=== PATIENT | female | born 1990 | race Caucasian/White ===

== ENCOUNTER → 2023-11-22 09:09 | Outpatient (REF) | payer MEDICARE, OTHER, SELFPAY | LOC: RAD 09:09 | PROVIDERS: ATTENDING PHYSICIAN Physician Assistant; FAMILY PHYSICIAN Family Medicine | DX: R13.10 Dysphagia, unspecified (principal) | CPT/HCPCS: 74246 ==

== ENCOUNTER → 2024-05-18 08:05 | Outpatient (REF) | payer MEDICARE, OTHER, SELFPAY | LOC: RST 08:05 | PROVIDERS: ATTENDING PHYSICIAN Internal Medicine Gastroenterology; FAMILY PHYSICIAN Family Medicine | DX: R13.10 Dysphagia, unspecified (principal) | CPT/HCPCS: 74230; 92611 ==

== ENCOUNTER → 2025-01-15 07:24 | Outpatient (REF) | payer MEDICARE, OTHER, SELFPAY | LOC: HWRAD 07:24 | PROVIDERS: ATTENDING PHYSICIAN Internal Medicine Cardiovascular Disease; FAMILY PHYSICIAN Family Medicine | DX: Q21.3 Tetralogy of Fallot (principal); D82.1 Di George's syndrome; Z98.890 Other specified postprocedural states | CPT/HCPCS: 76700 ==